=== PATIENT | male | born 1990 | race Caucasian/White ===

== ENCOUNTER 2016-12-15 14:15 | Emergency (ER) | payer SELFPAY ==
[~2016-12-15] VITALS: Ht 177.8 cm; Wt 79.4 kg
[2016-12-15 14:20] VITALS: BP 155/92
--- NOTE | 2016-12-15 14:41 | ED GI ---
General Chief Complaint: Abdominal/GI Problems Stated Complaint: ABD PAIN Nursing Triage Note: ARRIVED VIA AMB TO ROOM 07. [facility] OFF AND ON SINCE SAT ET LOSS OF APPITITE. Sepsis Screen: No Definite Risk Source of Information: Patient Exam Limitations: No Limitations History of Present Illness Time Seen By Provider: 14:33 Initial Comments Patient presents to ER by private conveyance with chief complaint of diarrhea for the past for 5 days that has not been totally watery but has no blood in it. He's had a little nausea for the past couple days and says he vomited one time yesterday after eating [employer] 30 minutes later. He says he did go to camp one day but only stayed for the day and did not stay overnight. He has not been out of the country. He is concerned that he was drinking Water and that might be the source of his infection. He has no history of irritable bowel or inflammatory bowel disease. No other significant medical or surgical history. He does not any medications. Allergies and Home Medications Allergies Coded Allergies: No Known Drug Allergies (Unverified , 12/15/16) Home Medications No Active Prescriptions or Reported Meds Review of Systems Constitutional: No chills, No diaphoresis, No fever, malaise EENTM: No Eye Pain, No Ear Pain Respiratory: Denies Cough, Denies Shortness of Air Cardiovascular: Denies Chest Pain, Denies Lightheadedness Gastrointestinal: Abdominal Pain (epigastric), Denies Constipated, Diarrhea, Nausea, Vomiting Genitourinary: Denies Burning, Denies Discharge Musculoskeletal: No back pain, No joint pain Skin: No pruritus, No rash Psychiatric/Neurological: Denies Headache, Denies Numbness, Denies Paresthesia Past Tbgclov-Jvulad-Ygcxzv Hx Patient Social History Alcohol Use: Denies Use Recreational Drug Use: No Smoking Status: Current Everyday Smoker 2nd Hand Smoke Exposure: Yes Recent Foreign Travel: No Contact w/Someone Who Travel: No Recent Infectious Disease Expo: No Recent Hopitalizations: No Physical Abuse: No Sexual Abuse: No Surgeries History of Surgeries: No Cardiovascular History of Cardiac Disorders: No Neurological History of Neurological Disord: No Genitourinary History of Genitourinary Disor: No Gastrointestinal History of Gastrointestinal Di: No Musculoskeletal History of Musculoskeletal Dis: No Endocrine History of Endocrine Disorders: No HEENT History of HEENT Disorders: No Cancer History of Cancer: No Psychosocial History of Psychiatric Problem: No Suicide Risk Score: 0 Integumentary History of Skin or Integumenta: No Physical Exam Vital Signs VS - Last 72 Hours, by Label 12/15/16 14:20 Temp 98.0 Pulse 77 Resp 18 B/P (MAP) 155/92 Pulse Ox 98 Capillary Refill : Less Than 3 Seconds General Appearance: WD/WN, no apparent distress HEENT: PERRL/EOMI, pharynx normal Neck: non-tender, supple, normal inspection Respiratory: chest non-tender, lungs clear Cardiovascular: normal peripheral pulses, regular rate, rhythm Gastrointestinal: non tender, soft, abnormal bowel sounds (hyperactive bowel sounds), tenderness (epigastric mild) Extremities: no pedal edema, normal capillary refill Neurologic/Psychiatric: alert, oriented x 3 Skin: normal color, warm/dry Progress/Results/Core Measures Results/Orders My Orders Orders - ADA HANNON Ondansetron Oral Dissolve Tab (Zofran (12/15/16 14:45) Vital Signs/I&O Vital Sign - Last 12Hours 12/15/16 14:20 Temp 98.0 Pulse 77 Resp 18 B/P (MAP) 155/92 Pulse Ox 98 Blood Pressure Mean: 113 Departure Impression Impression: Primary Impression: Gastroenteritis and colitis, viral Disposition: 01 HOME, SELF-CARE Condition: Stable Departure-Patient Inst. Decision time for Depature: 14:39 Referrals: NO,LOCAL PHYSICIAN (PCP/Family) Primary Care Physician Patient Instructions: Viral Gastroenteritis Add. Discharge Instructions: Take 2 tablets of Imodium and every 4 hours if you're still having loose stool take another tablet until it has resolved. If you go more then 8 hours without taking a tablet and have another loose stool you can take 2 tablets again and resume the regimen. Take one tablet of Zofran and allowed to dissolve on your tongue and absorbed your mouth every 6 hours as needed for nausea. All discharge instructions reviewed with patient and/or family. Voiced understanding. Scripts Ondansetron (Zofran Odt) 4 Mg Tab.rapdis 4 MG PO Q6H Y for NAUSEA/VOMITING-1ST LINE, #14 TAB 0 Refills Prov: ADA HANNON 12/15/16 Work/School Note: Work Release Form Date Seen in the Emergency Department: Dec 15, 2016 Return to Work: Dec 16, 2016 Restrictions: No Restrictions ADA HANNON 6, 2017 14:41
[2016-12-15] MEDS ORDERED: ONDA4TAB8 PO (14:43)
[2016-12-15] MEDS ORDERED: ONDANSETRON 4 MG (ZOFRAN) ORAL DISSOLVE TAB PO ONE (14:45)
== END 2016-12-15 14:52 | disposition home or self-care (01) ==
LOC: ER 14:18
DX: A08.4 Viral intestinal infection, unspecified (principal); F17.210 Nicotine dependence, cigarettes, uncomplicated
CPT/HCPCS: 99282

== ENCOUNTER 2017-05-18 10:08 | Emergency (ER) | payer SELFPAY ==
[~2017-05-18 10:08] MED LIST: ONDA4TAB8 PO
== END 2017-05-18 10:37 | disposition left against medical advice (07) ==
LOC: EDUNIT# 10:08 → ER 10:10
DX: M25.552 Pain in left hip (principal)

== ENCOUNTER 2018-01-04 10:06 | Emergency (ER) | payer SELFPAY ==
[~2018-01-04] VITALS: Ht 175.3 cm; Wt 77.1 kg
--- NOTE | 2018-01-04 11:10 | ED Upper Extremity ---
General Chief Complaint: Upper Extremity Stated Complaint: R SHOULDER PAIN Nursing Triage Note: ARRIVED VIA AMB TO ROOM 05. [facility] APPX 4 WEEKS AGO HE WOKE UP WITH RIGHT SHOULDER PAIN. NON INJURY AND IT HAS BEEN HURTING SINCE. Nursing Sepsis Screen: No Definite Risk Source: patient, other Exam Limitations: no limitations History of Present Illness Date Seen by Provider: Jan 04, 2018 Time Seen by Provider: 10:50 Initial Comments Patient presents to ER by private conveyance with his significant other with a chief complaint that his right shoulders been hurting for the past 4 weeks. It hurts when he lifts his shoulder above the plane. He does not any pain in his elbow. No trauma. No history of fracture or injury to his right shoulder. No significant medical history. He's been using Aleve 4 tablets a day for the past week. He says the Aleve helps but it has not gotten any better and hurts every time he left foot. No swelling redness fevers chills. Allergies and Home Medications Allergies Coded Allergies: No Known Drug Allergies (Unverified , 12/15/16) Patient Home Medication List Home Medication List Reviewed: Yes Review of Systems Constitutional: No chills, No diaphoresis EENTM: No ear pain, No eye pain Respiratory: No cough, No short of breath Cardiovascular: No edema, No Hx of Intervention Gastrointestinal: No abdominal pain, No nausea Genitourinary: No decreased output, No discharge, No dysuria Musculoskeletal: joint pain; No joint swelling; muscle pain Past Wxcbqgo-Iefmkc-Kemqge Hx Patient Social History Alcohol Use: Denies Use Recreational Drug Use: No Smoking Status: Current Everyday Smoker 2nd Hand Smoke Exposure: Yes Recent Foreign Travel: No Contact w/Someone Who Travel: No Recent Infectious Disease Expo: No Recent Hopitalizations: No Past Medical History Surgeries: No Cardiac: No Neurological: No Genitourinary: No Gastrointestinal: No Musculoskeletal: Yes (FX PELVIS) Endocrine: No HEENT: No Cancer: No Psychosocial: No Integumentary: No Physical Exam Vital Signs Vital Signs - First Documented 01/04/18 10:40 Temp 98.0 Pulse 101 Resp 16 B/P (MAP) 166/101 (122) Pulse Ox 99 O2 Delivery Room Air Capillary Refill : Less Than 3 Seconds Height, Weight, BMI Height: 5'9.00" Weight: 170lbs. oz. 77.662755hm; BMI Method:Stated General Appearance: WD/WN, no apparent distress HEENT: PERRL/EOMI, pharynx normal Neck: non-tender, normal inspection Cardiovascular: normal peripheral pulses, regular rate, rhythm Respiratory: no respiratory distress, no accessory muscle use Shoulder: normal inspection, non-tender, no evidence of injury, limited ROM ( limited flexion and abduction to about 100. There is no significant tenderness or weakness of any for of the rotator cuff muscles or tendons. There is mild tenderness around the acromioclavicular joint and the anterior deltoid muscle belly.) Elbow/Forearm: normal inspection, non-tender, no evidence of injury, normal ROM , Bilateral Wrist: Yes normal inspection, Yes non-tender, Yes no evidence of injury, Yes normal ROM Progress/Results/Core Measures Results/Orders Vital Signs/I&O 01/04/18 10:40 Temp 98.0 Pulse 101 Resp 16 B/P (MAP) 166/101 (122) Pulse Ox 99 O2 Delivery Room Air Blood Pressure Mean: 122 Progress Progress Note : Time: 11:07 Progress Note Muscular strain versus tendinitis. We'll continue the NSAIDs add some steroids by mouth and encourage a weight restriction at work. We'll encourage him to follow up with her PCP in the next 2 weeks. Departure Impression Primary Impression: Tendinitis of right shoulder Disposition: 01 HOME, SELF-CARE Condition: Stable Departure-Patient Inst. Decision time for Depature: 11:07 Referrals: NO,LOCAL PHYSICIAN (PCP/Family) Primary Care Physician Patient Instructions: Active Range of Motion Exercises, Neck and Shoulders, LOCAL PHYSICIAN LIST Add. Discharge Instructions: 40 pound weight restriction on the right shoulder for the next week. Continue to take 2 Aleve in the morning and 2 at night. You can use Tylenol 1000 mg every 8 hours as needed for breakthrough pain. Use topical cream of your choice. Use ice for 20 minutes every 4 hours when possible for the first 3 days. Heating pads as necessary for pain. Take the prednisone 2 tablets daily for the next 5 days. Follow-up with a primary care doctor in the next 2 weeks if you are not having significant improvement. All discharge instructions reviewed with patient and/or family. Voiced understanding. Scripts Prednisone (Prednisone) 20 Mg Tab 40 MG PO DAILY for 5 Days, #10 TAB 0 Refills Prov: ADA HANNON 01/04/18 Work/School Note: Work Release Form Date Seen in the Emergency Department: Jan 04, 2018 Return to Work: Jan 05, 2018 Restrictions: Need Release from Doctor Other Restrictions Listed Below: 40 pound weight restriction right shoulder until January 12, 2018. Restrictions: Clear to return to work with restrictions. ADA HANNON Jan 04, 2018 11:10
[2018-01-04] MEDS ORDERED: PRD20T PO (11:11)
[2018-01-04 11:18] VITALS: BP 150/112
== END 2018-01-04 11:18 | disposition home or self-care (01) ==
LOC: EDUNIT# 10:06 → ER 10:07
DX: M75.91 Shoulder lesion, unspecified, right shoulder (principal); F17.200 Nicotine dependence, unspecified, uncomplicated
CPT/HCPCS: 99282